=== PATIENT | female | born 1990 | race American Indian/Alaskan Native ===

== ENCOUNTER 2016-12-20 20:15 | Emergency (ER) | payer MEDICARE ==
--- NOTE | 2016-12-20 20:57 | Emergency Department Report ---
Chief Complaint: GI Bleed Stated Complaint: ABDOMINAL PAIN Time Seen by Provider: 12/20/16 20:54 - HPI History of Present Illness: Patient is a 26 y/p female with history of aplastic anemia who presents due to abdominal pain and vomiting x 2 hours. Patient states that she has been vomting blood, and has had blood in her stool. patient was actively vomiting in triage. - ROS Review of Systems: see HPI - Exam Vital Signs: Vital Signs 12/20/16 20:37 Temperature 97.4 F L Pulse Rate 94 H Respiratory 22 Rate Blood Pressure 115/77 O2 Sat by Pulse 98 Oximetry Physical Exam: EPIGASTRIC TENDERNESS MSE screening note: Focused history and physical exam performed. Due to findings the following was ordered:ABD PAIN PROTOCOL ED Disposition for MSE Condition: Stable Forms: Accompanied Note
[2016-12-20 23:35] LABS: Alanine Aminotransferase 52 units/L (7-56); Albumin 4.8 g/dL (3.9-5); Albumin/Globulin Ratio 1.2 %; Alkaline Phosphatase 185 units/L (35-129); BUN/Creatinine Ratio 23.33; Bilirubin,Total 1.2 mg/dL (0.1-1.2); Blood Urea Nitrogen 21 mg/dL (7-17); Calcium 10.1 mg/dL (8.4-10.2); Carbon Dioxide 17 mmol/L (22-30); Chloride 97.7 mmol/L (98-107); Glucose 154 mg/dL (65-100); Lipase 48 units/L (13-60); Potassium 3.7 mmol/L (3.6-5.0); Sodium 140 mmol/L (137-145); Total Protein 8.9 g/dL (6.3-8.2)
[2016-12-20 23:37] LABS: Anion Gap 29 mmol/L
[2016-12-21] MEDS ORDERED: ZOFRAN IV ONE (00:29)
[2016-12-21] MEDS ORDERED: NACL 0.9% 1000 ML 1,000 ML IV ONE ×2 (00:29→03:30)
[2016-12-21 00:30] LABS: Basophils % (Auto) 0.1 % (0.0-1.8); Eosinophils % (Auto) 0.7 % (0.0-4.3); Mean Corpuscular HGB Conc 33 % (30-34); Mean Corpuscular Hemoglobin 31 pg (28-32); Mean Corpuscular Volume 93 fl (79-97); Red Blood Count 6.15 M/mm3 (3.65-5.03); Red Cell Distribution Width 15.9 % (13.2-15.2); White Blood Count 15.5 K/mm3 (4.5-11.0)
--- NOTE | 2016-12-21 00:37 | Emergency Department Report ---
HPI - General Chief Complaint: GI Bleed Time Seen by Provider: 12/21/16 00:00 - HPI HPI: This is a 26-year-old Afro-[place] female presents to the emergency department by EMS from home with complaint of abdominal pain, nausea and vomiting, hematemesis and bright red blood per rectum. She says she has been having abdominal pain off and on for the past 2 days. However at about 5:30 PM this evening she felt like she needed to have a bowel movement. She went and sat on the toilet and began vomiting at the same time. She said the vomiting went back to back to back. Eventually she says she vomited some bright red blood and also looked down at his toilet and saw bright red blood in the toilet. She is not taken anything for symptoms prior to presentation and did not see anything by EMS. No recent travel or sick contacts at home. She denies any fever, back pain, dysuria, vaginal discharge. Patient has a history of aplastic anemia but that resolved with a bone marrow transplant in 2014. Her primary care doctor is a Dr. Washington at [facility]. ED Past Medical Hx - Past Medical History Previous Medical History?: Yes Additional medical history: Aplastic Anemia,. c-diff 1yr ago - Surgical History Past Surgical History?: Yes Additional Surgical History: Bone Marrow Biopsies. [place]. Bone marro transplant - Social History Smoking Status: Never Smoker Substance Use Type: None - Medications Home Medications: Home Medications Medication Instructions Recorded Confirmed Last Taken Type HYDROcodone/APAP 5-325 [Lynn 1 each PO Q6HR PRN #12 tablet 12/21/16 Unknown Rx 5/325] Levofloxacin [Levaquin] 750 mg PO QDAY #5 tablet 12/21/16 Unknown Rx Ondansetron [Zofran Odt] 4 mg PO Q8H PRN #10 tab.rapdis 12/21/16 Unknown Rx ED Review of Systems ROS: Stated complaint: ABDOMINAL PAIN Other details as noted in HPI Comment: All other systems reviewed and negative Constitutional: denies: chills, fever Eyes: denies: eye pain, eye discharge, vision change ENT: denies: ear pain, throat pain Respiratory: denies: cough, shortness of breath, wheezing Cardiovascular: denies: chest pain, palpitations Gastrointestinal: abdominal pain, nausea, vomiting, hematemesis. denies: melena Genitourinary: denies: urgency, dysuria, discharge Musculoskeletal: denies: back pain, joint swelling, arthralgia Skin: denies: rash, lesions Neurological: denies: headache, weakness, paresthesias Physical Exam - Physical Exam Vital Signs: Vital Signs 12/20/16 12/21/16 20:37 00:07 Temperature 97.4 F L Pulse Rate 94 H 100 H Respiratory 22 16 Rate Blood Pressure 115/77 Blood Pressure 105/81 [Left] O2 Sat by Pulse 98 95 Oximetry Physical Exam: GENERAL: The patient is well-developed well-nourished. HEENT: Normocephalic. Atraumatic. Extraocular motions are intact. Patient has moist mucous membranes. Pupils equal reactive to light bilaterally. NECK: Supple. Trachea is midline. CHEST/LUNGS: Clear to auscultation. There is no respiratory distress noted. HEART/CARDIOVASCULAR: Regular. There is no tachycardia. There is no gallop rub or murmur. ABDOMEN: Abdomen is soft. Generalized tenderness to palpation of the abdomen. No guarding rebound tenderness. Patient has normal bowel sounds. There is no abdominal distention. SKIN: There is no rash. There is no edema. There is no diaphoresis. RECTAL: Deferred NEURO: The patient is awake, alert, and oriented. The patient is cooperative. The patient has no focal neurologic deficits. The patient has normal speech. MUSCULOSKELETAL: There is no tenderness or deformity. There is no limitation range of motion. There is no evidence of acute injury. ED Course Vital Signs 12/20/16 12/21/16 20:37 00:07 Temperature 97.4 F L Pulse Rate 94 H 100 H Respiratory 22 16 Rate Blood Pressure 115/77 Blood Pressure 105/81 [Left] O2 Sat by Pulse 98 95 Oximetry ED Medical Decision Making - Lab Data Result diagrams: 12/21/16 Unknown 12/20/16 22:54 - Radiology Data Radiology results: report reviewed, image reviewed interpreted by me: Abdominal x-ray does not show any acute process. Nonspecific bowel gas. CT of the abdomen and pelvis without contrast shows a previous cholecystectomy. There is no biliary ductal dilation. There are no kidney stones or ureteral stones. No hydronephrosis. There are mildly dilated and thickened loops of small bowel suggesting nonspecific enteritis. There is no obstruction. Colon is unremarkable. The appendix is normal. There are small prominent mesenteric lymph nodes which are nonspecific. The uterus and ovaries are unremarkable. There is no ascites, free air, abscess or adenopathy. - Medical Decision Making 26-year-old female presents to the emergency department with some generalized abdominal pain, nausea and vomiting, and some episodes of hematemesis and her blood per rectum. The patient's vital signs are stable throughout her ED course including being afebrile. Abdominal x-ray was done that did not show any acute process. Patient's labs been mostly unremarkable. Patient does have some signs of dehydration so she was given 2 L of IV fluid resuscitation. She was given some Zofran for nausea and pain medication for her abdomen. Eventually a CT of the abdomen and pelvis was done without contrast that shows some signs of nonspecific enteritis and possible mesenteric adenitis. Patient' s urinalysis might show a mild urinary tract infection but also was not a clean catch. Patient will be discharged home with some pain medication, nausea medication, and a short course of antibiotics. She has a primary care doctor for follow-up. She will return to the ER with any worsening of her symptoms or any acute distress. - Differential Diagnosis gastroenteritis, colitis, , bowel obstruction Critical Care Time: No Critical care attestation.: If time is entered above; I have spent that time in minutes in the direct care of this critically ill patient, excluding procedure time. ED Disposition Clinical Impression: Mesenteric adenitis, Enteritis Abdominal pain Qualifiers: Abdominal location: generalized Qualified Code(s): R10.84 - Generalized abdominal pain Nausea & vomiting Qualifiers: Vomiting type: unspecified Vomiting Intractability: non-intractable Qualified Code(s): R11.2 - Nausea with vomiting, unspecified Disposition: DISCHARGED TO HOME OR SELFCARE Is pt being admited?: No Does the pt Need Aspirin: No Condition: Stable Instructions: Mesenteric Adenitis (ED), Gastroenteritis (ED), Acute Nausea and Vomiting (ED), Abdominal Pain (ED) Additional Instructions: Please follow-up with your primary care doctor the next few days. Increase her oral rehydration. Return to the ER with any worsening of your symptoms or any acute distress. You've been prescribed a medication that is sedating. Therefore this medication cannot be mixed with alcohol, or taken prior to driving, working, or being responsible for children. I'll also give new a referral for a local drying can worker, Dr. Zuniga, to follow up regarding your complaint of rectal bleeding. Prescriptions: Levofloxacin [Levaquin] 750 mg PO QDAY #5 tablet HYDROcodone/APAP 5-325 [Lynn 5/325] 1 each PO Q6HR PRN #12 tablet PRN Reason: Pain Ondansetron [Zofran Odt] 4 mg PO Q8H PRN #10 tab.rapdis PRN Reason: Nausea Referrals: CHAPARRITA ELIZABETH MD [Primary Care Provider] - 3-5 Days LAURITA ZUNIGA MD [Staff Physician] - 3-5 Days Forms: Accompanied Note Time of Disposition: 06:17
[2016-12-21] MEDS ORDERED: MORPHINE ONE (00:51)
[2016-12-21 00:57] LABS: Hemoglobin 18.8 gm/dl (10.1-14.3)
[2016-12-21 00:58] LABS: Hematocrit 55.8 % (30.3-42.9); Platelet Count 170 K/mm3 (140-440)
[2016-12-21] MEDS ORDERED: PROTONIX IV ONE (01:01)
[2016-12-21] MEDS ORDERED: MORPHINE IV ONE (01:02)
[2016-12-21 01:09] LABS: Bilirubin,Urine SM (Negative); Blood,Urine NEG (Negative); Ketones,Urine TR mg/dL (Negative); Leukocyte Esterase,Urine NEG (Negative); Mucus,Urine 3+ /HPF; Nitrite,Urine NEG (Negative)
[2016-12-21 02:31] LABS: INR TNR (0.87-1.13); Partial Thromboplastin Time TNR Sec. (24.2-36.6)
[2016-12-21] MEDS ORDERED: NACL ONE (02:49)
[2016-12-21 03:27] LABS: INR 1.14 (0.87-1.13)
[2016-12-21 03:28] LABS: Partial Thromboplastin Time 27.8 Sec. (24.2-36.6)
[2016-12-21] MEDS ORDERED: DILAUDID IV ONE (05:21)
--- NOTE | 2016-12-21 06:00 | XRay Report ---
FINAL REPORT PROCEDURE: CT ABDOMEN PELVIS WO CON TECHNIQUE: Computerized axial tomography of the abdomen and pelvis was performed without intravenous contrast. This study is performed without intravascular contrast material and its sensitivity for abdominal and pelvic pathology, including neoplasms, inflammation, abscess, free fluid, thrombosis, arterial dissection and infarction, is reduced compared with a contrast enhanced study. HISTORY: Abd pain COMPARISON: No prior studies are available for comparison. FINDINGS: Visualized lower thorax: No significant abnormality. Liver: Normal size and attenuation. Spleen: Normal size and attenuation. Gallbladder and biliary system: There has been a cholecystectomy. There is no biliary ductal dilatation.. Pancreas: Normal. Adrenals: Normal. Kidneys: There are no kidney stones or ureteral stones. There is no hydronephrosis.. GI tract: There are mildly dilated and thickened loops of small bowel suggesting nonspecific enteritis. There is no obstruction. The colon is unremarkable. The appendix is normal.. Lymph nodes and mesentery: There are small but prominence mesenteric lymph nodes which are nonspecific.. Vasculature: Normal. Bladder: Normal. Reproductive organs: The uterus and ovaries are unremarkable.. Peritoneum: There is no ascites, free air, abscess or adenopathy.. Musculoskeletal structures: No significant abnormality. Other: None. IMPRESSION: There has been a cholecystectomy. There is no biliary ductal dilatation.. There are no kidney stones or ureteral stones. There is no hydronephrosis.. There are mildly dilated and thickened loops of small bowel suggesting nonspecific enteritis. There is no obstruction. The colon is unremarkable. The appendix is normal.. There are small but prominence mesenteric lymph nodes which are nonspecific.. The uterus and ovaries are unremarkable.. There is no ascites, free air, abscess or adenopathy.. .
[2016-12-21 06:13] VITALS: BP 100/62
== END 2016-12-21 06:40 | disposition home or self-care (01) ==
LOC: ED 20:15
DX: I88.0 Nonspecific mesenteric lymphadenitis (principal); K52.9 Noninfective gastroenteritis and colitis, unspecified; R10.84 Generalized abdominal pain; R11.2 Nausea with vomiting, unspecified; D61.9 Aplastic anemia, unspecified
CPT/HCPCS: 36415; 74020; 74176; 80053; 81001; 81025; 83690; 84703; 85025; 85610; 85730; 86850; 86900; 86901; 96361; 96374; 96375; 99285; C9113; J1170; J2270; J2405; J7030